=== PATIENT | female | born 1985 | race Caucasian/White ===

== ENCOUNTER 2017-09-14 21:23 | Inpatient (IN) | payer MEDICAID ==
[2017-09-14] MEDS ORDERED: LACTATED RINGER'S 1,000 ML IV (21:45)
[2017-09-14] MEDS ORDERED: BUTORPHANOL 1 MG INJ IV ×2 (22:00→22:30)
[2017-09-14] MEDS ORDERED: OXYTOCIN 30 UNITS/LR 500 ML IV ×4 (22:00→22:30)
[2017-09-14] MEDS ORDERED: MISOPROSTOL 200 MCG TAB PR (22:00)
[2017-09-14] MEDS ORDERED: LIDOCAINE 1% (MPF) 30 ML INJ INJ ×2 (22:00→22:30)
[2017-09-14] MEDS ORDERED: METHYLERGONOVINE 0.2 MG INJ IM ×2 (22:00→22:30)
[2017-09-14] MEDS ORDERED: AMPICILLIN 2 GM/NS (PMX) 100 ML IV (22:00)
[2017-09-14] MEDS ORDERED: HYDROCODONE/APAP (5/325) TAB PO ×2 (22:00→22:30)
[2017-09-14] MEDS ORDERED: CARBOPROST 250 MCG INJ IM (22:00)
[2017-09-14] MEDS ORDERED: BUTORPHANOL 2 MG INJ IV ×2 (22:00→22:30)
[2017-09-14] MEDS ORDERED: IBUPROFEN 600 MG TAB PO ×2 (22:00→22:30)
[2017-09-14 22:15] LABS: ADD MAN DIFF? NO
[2017-09-14] MEDS: AMPICILLIN 2 GM/NS (PMX) 100 ML IV (22:19)
[2017-09-14] MEDS: LACTATED RINGER'S 1,000 ML IV (22:19)
[2017-09-14 22:20] LABS: BASOPHILS % 0.1 % (0.0-2.0); EOSINOPHILS % 0.4 % (0.0-7.0); HEMATOCRIT 40.6 % (37.0-47.0); HEMOGLOBIN 13.8 g/dl (12.0-16.0); LYMPHOCYTES # 2.5 10^3/ul (0.8-2.9); MEAN CORPUSCULAR HEMOGLOBIN 30.3 pg (29.0-33.0); MEAN CORPUSCULAR VOLUME 89.2 fl (82.0-101.0); MONOCYTE # 0.5 10^3/ul (0.3-0.9); MONOCYTES % 6.5 % (0.0-11.0); NEUTROPHIL # 4.7 10^3/ul (1.6-7.5); NEUTROPHILS % 60.4 % (39.0-77.0); PLATELET COUNT 157 10^3/UL (140-415); RED BLOOD COUNT 4.55 10^6/ul (4.20-5.40); RED CELL DISTRIBUTION WIDTH 13.5 % (11.5-14.5)
[2017-09-14 22:20] LABS: WHITE BLOOD COUNT 7.8 10^3/ul (4.8-10.8)
[2017-09-14 22:39] LABS: INR 0.91; PROTIME 12.3 Sec (11.9-14.9)
[2017-09-14 22:41] LABS: ALANINE AMINOTRANSFERASE 24 IU/L (13-69); ALBUMIN 3.5 g/dl (3.3-4.9); ALBUMIN/GLOBULIN RATIO 1.16; ALKALINE PHOSPHATASE 340 IU/L (42-121); ANION GAP 12 (8-16); ASPARTATE AMINO TRANSFERASE 37 IU/L (15-46); BILIRUBIN,INDIRECT 0.4 mg/dl (0-1.1); BILIRUBIN,TOTAL 0.4 mg/dl (0.2-1.3); BLOOD UREA NITROGEN 10 mg/dl (7-20); CALCIUM 8.8 mg/dl (8.4-10.2); CARBON DIOXIDE 19 mmol/L (21-31); CHLORIDE 112 mmol/L (97-110); CREATININE 0.86 mg/dl (0.44-1.00); GLUCOSE 106 mg/dl (70-220); POTASSIUM 3.9 mmol/L (3.5-5.1); SODIUM 139 mmol/L (135-144); TOTAL PROTEIN 6.5 g/dl (6.1-8.1)
[2017-09-14 23:11] LABS: HEPATITIS B SURFACE ANTIGEN NEGATIVE (NEGATIVE)
[2017-09-14] MEDS: OXYTOCIN 30 UNITS/LR 500 ML IV ×2 (23:24→23:46)
[2017-09-14] MEDS: MISOPROSTOL 200 MCG TAB PR ×2 (23:25→23:32)
[2017-09-14] MEDS: DEXTROSE 5%-LR 1,000 ML IV (23:34)
[2017-09-14] MEDS: LACTATED RINGER'S 1,000 ML IV* (23:34)
[2017-09-15] MEDS ORDERED: WITCH HAZEL/GLYCERIN PAD PR
[2017-09-15] MEDS ORDERED: ZOLPIDEM 5 MG TAB PO
[2017-09-15] MEDS ORDERED: MISOPROSTOL 200 MCG TAB PR
[2017-09-15] MEDS ORDERED: SENNA/DOCUSATE NA (8.6MG/50MG) TAB PO
[2017-09-15] MEDS ORDERED: ONDANSETRON 4 MG INJ IV
[2017-09-15] MEDS ORDERED: OXYTOCIN 30 UNITS/LR 500 ML IV
[2017-09-15] MEDS ORDERED: CARBOPROST 250 MCG INJ IM
[2017-09-15] MEDS ORDERED: DIBUCAINE 1% 30 GM OINT PR
[2017-09-15] MEDS ORDERED: OXYCODONE/ASPIRIN (4.88/325) TAB PO
[2017-09-15] MEDS ORDERED: METHYLERGONOVINE 0.2 MG INJ IM
[2017-09-15] MEDS: CARBOPROST 250 MCG INJ IM (00:01)
[2017-09-15] MEDS: IBUPROFEN 600 MG TAB PO ×4 (00:21→18:00)
[2017-09-15] MEDS: LACTATED RINGER'S 1,000 ML IV ×2 (00:48→23:52)
[2017-09-15] MEDS ORDERED: AMPICILLIN 1 GM/NS (PMX) 50 ML IV ×2 (02:00→02:30)
[2017-09-15] MEDS: ACETAMINOPHEN 325 MG TAB PO (02:18)
[2017-09-15] MEDS: DIPHENOXYLATE/ATROPINE TAB PO (03:42)
[2017-09-15] MEDS: DEXTROSE 5%-LR 1,000 ML IV (07:34)
[2017-09-15] MEDS: LACTATED RINGER'S 1,000 ML IV* ×2 (07:34→14:36)
[2017-09-15 09:29] LABS: ADD MAN DIFF? NO
[2017-09-15 09:36] LABS: BASOPHILS % 0.2 % (0.0-2.0); HEMOGLOBIN 11.5 g/dl (12.0-16.0); LYMPHOCYTES # 2.6 10^3/ul (0.8-2.9); LYMPHOCYTES % 18.4 % (15.0-51.0); MEAN CORPUSCULAR HEMOGLOBIN 30.4 pg (29.0-33.0); MEAN CORPUSCULAR HGB CONC 33.8 g/dl (32.0-37.0); MEAN CORPUSCULAR VOLUME 89.9 fl (82.0-101.0); MEAN PLATELET VOLUME 11.4 fl (7.4-10.4); MONOCYTE # 1.1 10^3/ul (0.3-0.9); MONOCYTES % 7.4 % (0.0-11.0); NEUTROPHIL # 10.4 10^3/ul (1.6-7.5); NEUTROPHILS % 73.5 % (39.0-77.0); PLATELET COUNT 129 10^3/UL (140-415); RED BLOOD COUNT 3.78 10^6/ul (4.20-5.40); RED CELL DISTRIBUTION WIDTH 13.7 % (11.5-14.5)
[2017-09-15 09:36] LABS: WHITE BLOOD COUNT 14.1 10^3/ul (4.8-10.8)
[2017-09-15 15:23] LABS: RAPID PLASMA REAGIN NONREACTIVE (NR)
[2017-09-15] MEDS ORDERED: ROCURONIUM 50 MG INJ (22:25)
[2017-09-15] MEDS ORDERED: PROPOFOL 20 ML (22:25)
[2017-09-15] MEDS ORDERED: ONDANSETRON 4 MG INJ (22:26)
[2017-09-15] MEDS ORDERED: ROPIVACAINE 0.5 % 30 ML VIAL (22:26)
[2017-09-15] MEDS ORDERED: METOCLOPRAMIDE 10 MG INJ (22:26)
[2017-09-15] MEDS ORDERED: BUPIVACAINE 0.5% (SDV) 30 ML INJ (22:37)
[2017-09-15] MEDS: CEFAZOLIN 2 GM/50 ML (PMX) 50 ML IVPB (22:48)
[2017-09-15] MEDS ORDERED: GLYCOPYRROLATE 0.4 MG INJ (23:08)
[2017-09-15] MEDS ORDERED: KETOROLAC 30 MG INJ (23:08)
[2017-09-15] MEDS ORDERED: NEOSTIGMINE 3 MG/3 ML SYRINGE (23:08)
[2017-09-15] MEDS ORDERED: CEFAZOLIN 1 GM INJ (23:08)
[2017-09-15] MEDS ORDERED: SILVER NITRATE SWAB (23:23)
[2017-09-15] MEDS ORDERED: HYDROmorphONE 1 MG/5 ML IV SYRINGE IV (23:30)
[2017-09-15] MEDS ORDERED: MIDAZOLAM 1 MG/ML 2 ML INJ IV (23:30)
[2017-09-15] MEDS ORDERED: KETOROLAC 30 MG INJ IV (23:30)
[2017-09-15] MEDS ORDERED: DIPHENHYDRAMINE 50 MG INJ IV ×2 (23:30)
[2017-09-15] MEDS: HYDROmorphONE 1 MG/5 ML IV SYRINGE IV (23:51)
[2017-09-16] MEDS ORDERED: ACETAMINOPHEN 325 MG TAB PO
[2017-09-16] MEDS: HYDROmorphONE 1 MG/5 ML IV SYRINGE IV ×2 (00:06)
[2017-09-16] MEDS: ONDANSETRON 4 MG INJ IV (00:19)
[2017-09-16] MEDS: MEPERIDINE 25 MG INJ IV (00:19)
[2017-09-16] MEDS: HYDROCODONE/APAP (5/325) TAB PO (03:05)
[2017-09-16] MEDS: IBUPROFEN 600 MG TAB PO ×3 (05:35→17:37)
[2017-09-16] MEDS: LACTATED RINGER'S 1,000 ML IV ×3 (05:57→21:57)
[2017-09-16 06:58] LABS: ADD MAN DIFF? NO
[2017-09-16 07:03] LABS: BASOPHILS % 0.2 % (0.0-2.0); EOSINOPHILS % 0.1 % (0.0-7.0); HEMATOCRIT 31.4 % (37.0-47.0); HEMOGLOBIN 10.4 g/dl (12.0-16.0); LYMPHOCYTES # 2.7 10^3/ul (0.8-2.9); LYMPHOCYTES % 27.2 % (15.0-51.0); MEAN CORPUSCULAR HEMOGLOBIN 30.3 pg (29.0-33.0); MEAN CORPUSCULAR HGB CONC 33.1 g/dl (32.0-37.0); MEAN CORPUSCULAR VOLUME 91.5 fl (82.0-101.0); MEAN PLATELET VOLUME 10.6 fl (7.4-10.4); MONOCYTE # 0.7 10^3/ul (0.3-0.9); MONOCYTES % 6.6 % (0.0-11.0); NEUTROPHIL # 6.5 10^3/ul (1.6-7.5); NEUTROPHILS % 65.5 % (39.0-77.0); PLATELET COUNT 124 10^3/UL (140-415); RED BLOOD COUNT 3.43 10^6/ul (4.20-5.40); RED CELL DISTRIBUTION WIDTH 14.2 % (11.5-14.5)
[2017-09-16] MEDS: LANOLIN 7 GM TUBE TOP (08:41)
[2017-09-16] MEDS: BENZOCAINE 20% 56 ML SPRAY TOP (08:41)
[2017-09-16] MEDS: MEASLES,MUMPS,RUBELLA VACCINE INJ SC* (09:00)
[2017-09-16 12:01] LABS: RUBELLA ANTIBODY - IGG 1.08 index
[2017-09-16] MEDS: DIPHTH/TET/ACEL PERTUSS (ADULT) 0.5 ML VIAL IM* (17:40)
[2017-09-17] MEDS: IBUPROFEN 600 MG TAB PO ×3 (05:17→12:34)
[2017-09-17] MEDS: HYDROCODONE/APAP (5/325) TAB PO ×2 (05:18)
[2017-09-17] MEDS: LACTATED RINGER'S 1,000 ML IV (05:57)
[2017-09-17 11:56] LABS: RUBELLA ANTIBODY - IGM <20.00 AU/mL
== END 2017-09-17 16:10 | disposition home or self-care (01) | DRG 767 ==
LOC: OBT 21:23 → L-D 09-15 00:05 → PP1 09-15 01:14 → OBT 21:29 → L-D 21:29
PROC: 0UB70ZZ Excision of Bilateral Fallopian Tubes, Open Approach (ICD-10-PCS; 2017-09-15 20:30)
PROC: 10E0XZZ Delivery of Products of Conception, External Approach (ICD-10-PCS; principal; 2017-09-15 22:27)
PROC: 4A1HXCZ Monitoring of Products of Conception, Cardiac Rate, External Approach (ICD-10-PCS; 2017-09-15 22:27)
PROC: 3E0234Z Introduction of Serum, Toxoid and Vaccine into Muscle, Percutaneous Approach (ICD-10-PCS; 2017-09-15 22:27)
DX: O48.0 Post-term pregnancy (principal); Z3A.41 41 weeks gestation of pregnancy; Z37.0 Single live birth; Z30.2 Encounter for sterilization; Z23 Encounter for immunization
CPT/HCPCS: 80053; 85025; 85610; 85730; 86592; 86762; 86850; 86900; 86901; 87340; 88302; 88307; 90715; 96360; 99464